=== PATIENT | male | born 1945 | race African-American/Black ===

== ENCOUNTER 2017-10-03 18:27 | Inpatient (IN) | payer MEDICARE, OTHER ==
[~2017-10-03] VITALS: Ht 182.9 cm; Wt 93.4 kg
[~2017-10-03 18:27] MED LIST: ALEVE220 MG PO; CLONIDINE0.1 PO; HYDROCODONE-AP1 EAC6 PO; HYZAAR 100-251 EACH PO; METFORMIN HCL500 MG PO; NORVASC10 MG PO; OXYCODONE HCL 55 MG PO; PERCOCET 5-3251 EACH PO; XARELTO10 MG PO
[2017-10-03 18:38] VITALS: BP 186/98
[2017-10-03] MEDS ORDERED: PROPAFENONE 15150 MG PO (18:41)
[2017-10-03 19:06] LABS: HEMATOCRIT 41.6 % (42.0-52.0); HEMOGLOBIN 14.2 gm/dL (14.0-18.0); NUCLEATED RBCS 0 /100WBC; PLATELET COUNT* 216 thou/uL (150-400); RBC 4.43 mil/uL (4.50-6.00); RDW-CV 12.5 % (10.5-14.5); WBC 22.1 thou/uL (4.0-11.0)
[2017-10-03 19:11] LABS: CALCIUM 9.1 mg/dL (8.5-10.1); CREATININE 1.6 mg/dL (0.6-1.3); POTASSIUM 3.4 mmol/L (3.5-5.1)
[2017-10-03 19:13] LABS: INR 1.2; PROTIME 11.3 Seconds (9.20-11.50)
[2017-10-03 19:16] LABS: ALBUMIN 3.6 g/dL (3.4-5.0); TOTAL BILIRUBIN 0.9 mg/dL (<0.1-1.0); TOTAL PROTEIN 8.2 g/dL (6.4-8.2)
[2017-10-03 19:32] LABS: ABSOLUTE LYMPHOCYTES 1.3 thou/uL (0.8-5.3); ABSOLUTE MONOCYTES 1.5 thou/uL (0.0-1.2); ABSOLUTE NEUTROPHILS 19.2 thou/uL (1.6-8.1); PLATELET ESTIMATE ADEQUATE
[2017-10-03 21:12] VITALS: BP 149/99
[2017-10-03 21:15] VITALS: BP 145/84
--- NOTE | 2017-10-03 21:15 | NUR ---
PATIENT ARRIVED ON UNIT AT 2114. TRANSFERED WITH STANDBY ASSIST TO THE UNIT BED. ADMISSION COMPLETE CHARTED. ORIENTED TO ROOM, UNIT AND CONTROLS. DENIES PAIN OR NAUSEA. RESTING COMFORTABLY AT THIS TIME. CALL LIGHT WITHIN REACH. WILL CALL FOR ASSISTANCE.
--- NOTE | 2017-10-04 05:01 | NUR ---
PATIENT REMAINS ALERT AND ORIENTED X4 THROUGHOUT SHIFT. VITAL SIGNS STABLE ON ROOM AIR. IV PATENT IN THE RIGHT FOREARM SALINE LOCKED. DENIES PAIN OR NAUSEA. NURSING HAS NOT NOTICED COUGH THROUGHOUT NIGHT. PATIENT DENIES ANY SPUTUM BEING COUGHED UP SINCE COMING TO THE HOSPITAL. IS AT BEDSIDE. ASSESSMENT COMPLETE CHARTED. TOLERATING DIET. REPOSITIONS SELF IN BED. PATIENT EDUCATION ON FALL PRECAUTIONS. BED IN LOW POSITION. RESTING COMFORTABLY THROUGHOUT THE NIGHT. CALL LIGHT WITHIN REACH. NURSING WILL CONTINUE TO MONITOR.
[2017-10-04 09:48] VITALS: BP 174/97
--- NOTE | 2017-10-04 12:21 | NUR ---
MET WITH PT TO DISCUSS HOME SITUATION/DC PLANNING. PT LIVES WITH . IS INDEPENDENT AND ACTIVE. HAD HIP SURGERY LAST YEAR AND HAS WALKER BUT DOESN'T USE. HAS HAD HH WITH [facility] IN PAST. PT DENIES DC NEEDS. IS DPOA. WILL FOLLOW
[2017-10-04 15:51] VITALS: BP 119/73
--- NOTE | 2017-10-04 17:19 | NUR ---
ASSUMED CARE OF PATIENT AFTER MORNING REPORT AT APPROX 0720. ALERT AND ORIENTED X4. ASSESSMENT COMPLETED AND CHARTED. VSS ON ROOM AIR. NO COMPLAINTS OF PAIN, NAUSEA OR SOA THIS SHIFT. FLUIDS, ANTIBIOTICS, AND SOLUMEDROL INFUSED ORDERED. PATIENT UP AD REJI IN THE ROOM. BEING FOLLOWED BY PULMONOLOGY. AT BEDSIDE THIS AFTERNOON. RESTING COMFORTABLY IN BED AT THIS TIME. HOURLY ROUNDS MAINTAINED, CALL LIGHT WITHIN REACH, NURSING WILL CONTINUE TO MONITOR.
[2017-10-04 20:00] VITALS: BP 131/74
--- NOTE | 2017-10-04 22:10 | NUR ---
ASSUMED PT CARE REPORT RECEIVED FROM NURSE. PT IS ALERT AWAKE ORIENTED X4. HE IS LAYING IN BED WIH BEDSIDE. HIS VITAL SIGNS ARE WITHIN MORMAL LIMIT. HIS O2 SATURATION IS 94% ON RA. HE IS [place] HR 58. MEDICATIONS WERE ADMINISTERED ORDERED. PT SAYS THAT HE USUALLY GETS HIS PROPAFENONE THREE TIMES DAILY INSTEAD OF ONCE DAILY. DR VILLAFANA WAS CONTACTED ABOUT IT. SHE SAYS THAT SHE WILL LEAVE IT LIKE THAT SINCE PT HR IS IN THE 50S. PT IS MADE COMFORTABLE IN BED. SCDS ON. BED IN LOWEST POSITION. CALL LIGHT AT REACH. ROOM KEPT QUIET. IV FLUID INFUSING . WILL CONTINUE TO MONITOR.
[2017-10-05 04:52] LABS: ABSOLUTE LYMPHOCYTES 0.9 thou/uL (0.8-5.3); ABSOLUTE MONOCYTES 0.2 thou/uL (0.0-1.2); BASOPHILS 0.1 %; EOSINOPHILS 0.1 %; HEMOGLOBIN 13.3 gm/dL (14.0-18.0); LYMPHOCYTES 7.2 %; MCH 31.7 pg (26.0-34.0); MCHC 33.3 g/dL (28.0-37.0); MCV 95.3 fL (80.0-100.0); MONOCYTES 2.1 %; MPV 8.9 fl. (7.2-11.1); NUCLEATED RBCS 0 /100WBC; PLATELET COUNT* 192 thou/uL (150-400); POLYS 90.5 %; RDW-CV 12.9 % (10.5-14.5); WBC 12.1 thou/uL (4.0-11.0)
[2017-10-05 05:37] LABS: ALBUMIN 2.8 g/dL (3.4-5.0); CALCIUM 8.5 mg/dL (8.5-10.1); CREATININE 1.2 mg/dL (0.6-1.3); MAGNESIUM 1.8 mg/dL (1.8-2.4); POTASSIUM 4.5 mmol/L (3.5-5.1); TOTAL BILIRUBIN 0.4 mg/dL (<0.1-1.0); TOTAL PROTEIN 6.8 g/dL (6.4-8.2)
--- NOTE | 2017-10-05 07:29 | NUR ---
PROPAFENONE HELD THIS AM BECAUSE PT HR IS 50.
[2017-10-05 09:00] VITALS: BP 125/69
--- NOTE | 2017-10-05 12:42 | CON ---
[address] [address] CONSULTATION Name: CATRINA DIETRICH Room: [address] IN .R.#: [id number] Admission: 10/03/17 Attend Phys: Marcia Hurt Discharge: Date of : 49 Report #: [id number] THIS REPORT FOR: //name// CC: Carlos Tellez DATE OF SERVICE: 10/04/2017 REQUESTING PHYSICIAN: Dr. Varma. INDICATION FOR CONSULTATION: Hemoptysis. HISTORY OF PRESENT ILLNESS: This is a 72-year-old gentleman. His past medical history includes a history of obstructive sleep apnea. He uses a CPAP at night. He is a lifetime nonsmoker. He uses propafenone for an arrhythmia; the patient was unable to describe what arrhythmia. He is not on long-term anticoagulation. The patient reports that he has been sick for the last 2 weeks. He says he has had a high-grade fever up to 100.8 degrees Fahrenheit yesterday. He has also had a recent runny nose as well as sore throat. He says that these symptoms are now subsiding. However, yesterday he had multiple episodes of hemoptysis. He says he coughed up small amounts of bright red blood on several occasions, which is the reason he came to the hospital. He has been coughing. He does not have any increasing shortness of breath. He does not have chest pain. There is no swelling of lower extremities. There is no calf pain. There is no nausea, vomiting or diarrhea. He has had disturbed sleep at night as well as sleepiness during the day, which are improved with the use of CPAP. REVIEW OF SYSTEMS: The patient answered to the negative for 12 questions for review of systems, except as mentioned above. PAST MEDICAL HISTORY: Arrhythmia. He has been on propafenone. He is not able to describe me what arrhythmia he has had. There is no known history of coronary artery disease or cardiac catheterization in the past. The patient is not on long-term anticoagulation. There is mention of the use of Xarelto; however, this was after orthopedic surgery for deep venous thrombosis prophylaxis in the past. He is not currently on any anticoagulation, other than aspirin. Hypertension, diabetes and arthritis. The patient has a history of obstructive sleep apnea. Based on a sleep study performed in 2011, his apnea-hypopnea index was 54.8 and he was prescribed a CPAP at that time. CURRENT MEDICATIONS: The list is in [employer], this is reviewed. HOME MEDICATIONS: List also in [employer] reviewed. Also as discussed above. PAST SURGICAL HISTORY: Status [place] [address] CONSULTATION Name: CATRINA DIETRICH Room: [address] [place] .R.#: [id number] Admission: 10/03/17 Attend Phys: Marcia Hurt Discharge: Date of : 49 Report #: [id number] SOCIAL HISTORY: No known history of smoking, excessive alcohol use or illegal drug use. ALLERGIES: No known drug allergies. PHYSICAL EXAMINATION: GENERAL: Alert, awake and oriented, not in any distress. VITAL SIGNS: He has a pulse of 63 and a blood pressure of 119/73. He is afebrile. He is saturating in the high 90s. His respiratory rate is 18. He did have a fever up to 38.0 last night. HEENT: Head is normocephalic and atraumatic. Pupils are equal and reactive. There is no throat erythema. NECK: Does not show raised JVP. CHEST: Clear to auscultation. HEART: Regular. No murmur. ABDOMEN: Soft and nontender. EXTREMITIES: Lower extremities show no edema and no calf tenderness. LABORATORY DATA: The patient's chest x-ray does not show any large infiltrates. There are some distended loops of bowel noted below the left lung base. The patient's lab work including CBC, chemistries as well as coagulation studies are in [facility] and these are reviewed. The patient's elevated WBC count as well as elevation in creatinine to 1.6 is noted. Note that the patient's baseline creatinine is 1.1. ASSESSMENT AND PLAN: 1. Hemoptysis. The likelihood that this is secondary to acute bacterial bronchitis, infiltrates not large enough to be visible on chest x-rays will also be possible. Thromboembolism will be possible. Upper airway bleeding will also be possible. However, both of these at this time appear to be unlikely. See further discussion below regarding acute bacterial bronchitis. I will go ahead and check a D-dimer as well as do venous Dopplers. For now, I am holding off on a CT chest with IV dye considering elevation in his creatinine. If the patient continues to have more hemoptysis, then p.r.n. racemic epinephrine nebulizer can be used. 2. Acute bacterial bronchitis/viral upper respiratory tract infection. The patient appears to have had viral rhinitis leading to secondary bacterial bronchitis. At this time, I favor continuing with broad-spectrum antibiotics, considering his history of arrhythmias as well as therapy with propafenone as well as a calcium channel gisselle. I will switch his Zithromax over to doxycycline, which will also provide some MRSA coverage. For now, we will also increase the dose of ceftriaxone. We will do a CT chest without contrast. We will reassess tomorrow. We will do a sputum culture and nasal swab for MRSA as well. I have ordered 2 doses of steroids, which will also help in reducing bleeding. [address] [address] CONSULTATION Name: CATRINA DIETRICH Darnell Room: [address] IN [facility].#: [id number] Admission: 10/03/17 Attend Phys: Marcia Hurt Discharge: Date of : 49 Report #: [id number] 3. Obstructive sleep apnea. 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 4. Past medical history of arrhythmias, details not available. 5. Diabetes. Suggest following blood glucoses, may increase with steroids ordered. <ELECTRONICALLY SIGNED> By: Bill Azevedo MD 10/05/17 1242 [id number] Azevedo MD /nt
[2017-10-05 14:13] VITALS: BP 198/68
--- NOTE | 2017-10-05 14:29 | NUR ---
PATIENT REFUSING INSULIN THIS AM AND LUNCH FOR INCREASED BLOOD SUGAR. EDUCATED PATIENT ON NEED FOR INSULIN WITH RECEIVING IV STEROIDS. PATIENT CONTINUED TO REFUSE. DR. VILLAFANA NOTIFIED AND ONE TIME DOSE OF METFORMIN GIVEN WITH LUNCH. AM BP MEDS HELD FOR LOW PULSE RATE. DR. VILLAFANA AWARE OF PULSE RATE. DR. HATCH HERE THIS AFTERNOON, STATED TO THIS NURSE THAT PATIENT SHOULD STAY ANOTHER NIGHT. PATIENT UPSET THIS AFTERNOON STATING HE WANTED TO GO HOME AND THIS NURSE NEEDED TO FIGURE OUT A WAY TO GET HIM DISCHARGED. DR. VILLAFANA NOTIFIED AND DISCUSSED AGAIN PATIENT'S BLOOD SUGARS AND PULSE RATE. ORDERS PLACED IN COMPUTER FOR PATIENT TO DISCHARGE. SCRIPT FOR ISSA CALLED INTO PATIENTS PREFFERED PHARMACY ORDERED.
[2017-10-05] MEDS ORDERED: LEVAQUIN 500 M500 M2 PO (14:43)
--- NOTE | 2017-10-05 15:27 | NUR ---
PATIENT DISCHARGED AT THIS TIME. INSTRUCTED TO CHECK BLOOD SUGARS AND BP/PULSE AT HOME, VERBALIZES UNDERSTANDING. PATIENT VERBALIZES UNDERSTANDING OF PAERWORK AND SCRIPT CALLED TO [facility]. ASHLEE'S DC'D. PATIENT AMBULATED OUT WITH THIS NURSE AND SPOUSE WITH ALL BELONGINGS.
== END 2017-10-05 15:31 | disposition home or self-care (01) | DRG 177 ==
LOC: M.ERS 18:27 → M.TBA-ER 19:53 → M.ORTHSURG 19:53
PROVIDERS: Internal Medicine; Internal Medicine Critical Care Medicine; Nurse Practitioner; ADMIT Internal Medicine
DX: J15.6 Pneumonia due to other Gram-negative bacteria (principal); R65.11 Systemic inflammatory response syndrome (SIRS) of non-infectious origin with acute organ dysfunction; N17.0 Acute kidney failure with tubular necrosis; I12.9 Hypertensive chronic kidney disease with stage 1 through stage 4 chronic kidney disease, or unspecified chronic kidney disease; N18.2 Chronic kidney disease, stage 2 (mild); E11.22 Type 2 diabetes mellitus with diabetic chronic kidney disease; I25.10 Atherosclerotic heart disease of native coronary artery without angina pectoris; J06.9 Acute upper respiratory infection, unspecified; J20.8 Acute bronchitis due to other specified organisms; M19.90 Unspecified osteoarthritis, unspecified site; G47.33 Obstructive sleep apnea (adult) (pediatric); Z96.649 Presence of unspecified artificial hip joint; Z83.3 Family history of diabetes mellitus; Z82.49 Family history of ischemic heart disease and other diseases of the circulatory system; Z79.899 Other long term (current) drug therapy